=== PATIENT | female | born 1975 | race Two or more races ===

== ENCOUNTER 2016-08-28 21:15 | Emergency (ER) | payer MEDICAID ==
[~2016-08-28] VITALS: Ht 162.6 cm; Wt 49.9 kg
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
[2016-08-28] MEDS ORDERED: Lidocaine 2% 20mg/ml/Epi 0.005mg/ml 20ml vial INJ ONE (22:00)
[2016-08-28] MEDS ORDERED: Bacitracin Oint UD TOPIC ONE (22:45)
[2016-08-28] MEDS ORDERED: IBUPROFEN600 MG ORAL (22:47)
[2016-08-28] MEDS ORDERED: CYCLOBENZAPRINE10 MG ORAL (22:47)
[2016-08-28 23:15] VITALS: BP 120/88
--- NOTE | 2016-08-29 11:03 | Diagnostic Imaging Report ---
Indication: Pain 3 views of the right knee were obtained. Findings: No acute fracture, malalignment, or joint effusion are identified. Joint space is relatively well-maintained. Bone mineralization is within normal limits for age. Impression: Negative exam
--- NOTE | 2016-08-29 11:03 | Diagnostic Imaging Report ---
Indication: Back pain Comparison: None Findings: 3 views of the lumbar spine were obtained. Multilevel narrowing of intervertebral disks and associated endplate and Facet osteophytes are present. No malalignment identified. No acute fracture definitely seen. Impression: Mild spondylosis. No acute injury appreciated. IUD noted.
--- NOTE | 2016-08-30 08:28 | Diagnostic Imaging Report ---
Indication: Headache Technique: Contiguous 5 mm thick transaxial imaging of the head obtained in a Siemens Sensation [address] scanner. Soft tissue and bone windows generated. Total Dose length Product (DLP): [address] Dose Index Volume (CTDIvol): 70.38 mGy Comparison: none Findings: The size and configuration of the cortical sulci, basal cisterns, and ventricles are within normal limits for age. There is no mass effect, midline shift, or edema identified. There is no evidence of acute hemorrhage or abnormal intra-axial or extra-axial fluid collections. The bones and soft tissues are unremarkable. Mucosal thickening noted within the visualized portions of the paranasal sinuses. Impression: No mass effect, edema or acute bleed. Sinusitis [facility] has communicated the preliminary results to the Emergency Department. Their findings are largely concordant with this report. The CT scanner at [facility] is accredited by the [place] [employer] and the scans are performed using dose optimization techniques as appropriate to a performed exam including Automatic Exposure control.
== END 2016-08-28 23:15 | disposition home or self-care (01) ==
LOC: EDBD 21:15 → EMR 22:25
DX: S39.012A Strain of muscle, fascia and tendon of lower back, initial encounter (principal); S09.90XA Unspecified injury of head, initial encounter; S71.112A Laceration without foreign body, left thigh, initial encounter; V09.9XXA Pedestrian injured in unspecified transport accident, initial encounter; Y93.9 Activity, unspecified; Y92.9 Unspecified place or not applicable; Z88.0 Allergy status to penicillin
CPT/HCPCS: 70450; 72020; 81025; 99284